=== PATIENT | female | born 1950 | race Caucasian/White ===

== ENCOUNTER 2020-05-03 17:10 | Emergency (ER) | payer OTHER ==
[~2020-05-03] VITALS: Ht 162.6 cm; Wt 68.2 kg
--- NOTE | 2020-05-03 18:57 | NUR ---
Pt comfortable in room. Pt states symptoms have not become worse.
--- NOTE | 2020-05-03 19:06 | NUR ---
2ND PAGE FOR DR. MONTOYA AT 19:05
--- NOTE | 2020-05-03 19:25 | NUR ---
3RD PAGE DR. MONTOYA AT 19:24
[2020-05-03 20:00] VITALS: BP 157/82
== END 2020-05-03 21:46 | disposition home or self-care (01) ==
LOC: ER 17:11
DX: H33.22 Serous retinal detachment, left eye (principal); Z90.89 Acquired absence of other organs; Z72.89 Other problems related to lifestyle; Z88.1 Allergy status to other antibiotic agents; Z88.2 Allergy status to sulfonamides
CPT/HCPCS: 99291